=== PATIENT | male | born 1990 | race Caucasian/White ===

== ENCOUNTER 2017-01-07 22:48 | Emergency (ER) | payer BC, MEDICAID ==
[2017-01-07 22:59] VITALS: BP 145/90
--- NOTE | 2017-01-07 23:10 | ERNOTE ---
Medical Problem HPI - Narrative Date of Service: 01/07/17 - General Chief Complaint: Cough Time Seen by Provider: 01/07/17 23:10 Source: patient Exam Limitations: no limitations - Immun/Allergies/Home Medications Immunizations: IMMUNIZATION HX Immunizations Up to Date Yes History of Influenza Vaccine No Hx Pneumococcal Vaccination No Allergies/Adverse Reactions: Allergies No Known Allergies Allergy (Verified 07/09/16 16:22) Home Medications: HOME MEDICATIONS Guaifenesin/Pseudoephedrne HCl [Mucinex D ER 1,200-120 mg Tab] 1 tab PO Q12H PRN #24 tab 01/08/17 [Last Taken Unknown] - History of Present History Narrative: Presents to ER with c/o episode of cough productive of "blood tinged sputum", and congestion, onset today. Date (Duration): 01/07/17 Timing: intermittent Severity: moderate Review of Systems - Review of Systems Constitutional: Present: no symptoms reported. Absent: fever, chills, diaphoresis, weakness, fatigue, malaise, weight loss EYE: Present: no symptoms reported ENT: Present: See HPI, nose congestion, nasal drainage Respiratory: Present: cough Cardiology: Present: no symptoms reported Gastrointestinal/Abdominal: Present: no symptoms reported Genitourinary: Present: no symptoms reported Musculoskeletal: Present: no symptoms reported Skin: Present: no symptoms reported Neurological: Present: no symptoms reported Endocrine: Present: no symptoms reported Hematologic/Lymphatic: Present: no symptoms reported Psych: Present: no symptoms reported All Other Systems: All systems neg except as marked - Patient's Past Medical History Patient History - Medical: Depression Patient History - Cardiac/Respiratory: No pertinent hx Patient History - Cancer: No Hx of Cancer Patient History - Surgical Procedures: No surgical history Patient History - Other: None - Family History mom Family History - Medical: History Unknown dad Family History - Medical: History Unknown - Social History Living Situations: significant other Abuse History: No History of abuse Psych History: Hx of Depression Smoking Status: Current every day smoker Have you smoked in the past 12 months: Yes Alcohol Use: occasionally Drug Use: none - Immunizations Immunizations Up to Date: Yes Hx Pneumococcal Vaccination: No History of Influenza Vaccine: No Physical Exam - Physical Exam General Appearance: Present: wd/wn, alert, no apparent distress Eye Exam: Normal inspection: bilateral, PERRL: bilateral, EOMI: bilateral Ears, Nose, Throat: Present: normal ENT inspection, hearing grossly normal, normal pharynx Neck: Present: normal inspection, nontender. Absent: lymphadenopathy (R), lymphadenopathy (L) Respiratory: Present: no respiratory distress, normal breath sounds, no accessory muscle use, chest nontender, lungs clear Cardiovascular/Chest: Present: regular rate, rhythm, no murmur Neurological Exam: Present: alert, oriented, normal mood/affect Skin Exam: Present: normal color, warm/dry. Absent: skin rash ED Progress - Vital Signs Patient's Vital Signs:: I have reviewed the patient's vital signs. Vital Signs: Vital Signs 01/07/17 22:52 Temperature 36.2 C L Pulse Rate 104 H Respiratory 16 Rate Blood Pressure 145/90 O2 Sat by Pulse 97 Oximetry - X-Ray X-Ray #1 X-Ray: chest Interpretation: Interp. by me - No acute finding - Progress/Reassessment Chief Complaint: General Assessment Departure - Departure Clinical Impression: Acute URI Disposition: Home self-care Condition: Good Instructions: Upper Respiratory Infection, Adult, [id number] Prescriptions: Guaifenesin/Pseudoephedrne HCl [Mucinex D ER 1,200-120 mg Tab] 1 tab PO Q12H PRN #24 tab PRN Reason: Congestion and cough
[2017-01-08] MEDS ORDERED: BENZONATATE 100 MG CAPSULE PO ONE ×2 (00:05→00:08)
== END 2017-01-08 00:15 | disposition home or self-care (01) ==
LOC: ER 22:48
DX: J06.9 Acute upper respiratory infection, unspecified (principal); F17.210 Nicotine dependence, cigarettes, uncomplicated

== ENCOUNTER 2017-11-06 12:54 | Day surgery (SDC) | payer BC ==
[~2017-11-06 12:54] MED LIST: RINGER'S SOLUTION,LACTATED 1,000 ML IV ONE
[2017-11-06] MEDS ORDERED: ceFAZolin SODIUM/DEXTROSE,ISO 2 GM/50 ML BAG IV ONE (19:00)
[2017-11-06] MEDS ORDERED: ceFAZolin SODIUM 1 GM VIAL IV ONE (19:25)
[2017-11-06] MEDS ORDERED: BUPIVACAINE HCL/EPINEPHRINE 50 ML VIAL IJ ONE (19:36)
[2017-11-06] MEDS ORDERED: RINGER'S SOLUTION,LACTATED 1,000 ML IV ONE (20:05)
[2017-11-06] MEDS ORDERED: RINGER'S SOLUTION,LACTATED 1,000 ML IV PRN (20:08)
[2017-11-06] MEDS ORDERED: MORPHINE SULFATE 2 MG/ML DISP.SYRIN IV PRN (20:08)
[2017-11-06] MEDS ORDERED: oxyCODONE HCL/ACETAMINOPHEN 1 TAB TABLET PO ONE ×2 (20:08→21:00)
[2017-11-06] MEDS ORDERED: PANTOPRAZOLE SODIUM 40 MG in NORMAL SALINE 100 ML IV ONE (20:08)
[2017-11-06] MEDS ORDERED: oxyCODONE HCL/ACETAMINOPHEN 1 TAB TABLET PO PRN (20:25)
[2017-11-06 23:07] VITALS: BP 118/79
--- NOTE | 2017-11-07 20:03 | OR ---
Operative Report - Dictated Report Narrative: OPERATIVE REPORT DATE OF OPERATION: 11/06/2017 PREOPERATIVE DIAGNOSIS: Pilonidal abscess POSTOPERATIVE DIAGNOSIS: Presumed pilonidal abscess OPERATION: Incision and drainage of presumed pilonidal abscess SURGEON: Zak Toussaint MD ANESTHESIA: Gen. connie So CRNA INDICATIONS FOR PROCEDURE: The patient is a 27-year-old male presented to the emergency room last night with painful swelling in the sacral area. He had incision and drainage with packing of an abscess and was referred to the office today. He has a large abscess which will require anesthesia for thorough incision and drainage FINDINGS: Large (6 x 8 cm) presumed pilonidal abscess NARRATIVE OF PROCEDURE: The patient was identified preoperatively and prior to the administration of anesthetic a multidisciplinary timeout was observed. The patient was placed supine, SCDs were applied, and 2 g of intravenous Ancef administered. [place] scope-assisted endotracheal intubation was performed and general anesthetic administered. The patient was then placed in the left lateral position with appropriate padding and monitoring. The previous dressing was removed. The sacral area was prepped with Betadine solution and isolated with 4 sterile towels. The remainder the patient was covered with a sterile disposable drape. The area was carefully inspected. There were no identifiable pilonidal pits in the gluteal cleft despite diligent search. The less than 1 cm incision over the most fluctuant portion of abscess just to the right of the midline in the superior gluteal cleft was probed with a hemostat. This revealed a large cavity extending caudally. An ellipse of skin was excised with a scalpel to allow digital exploration of the abscess cavity. Loculations were lysed. The cavity was then flushed with 1 L of saline until the return was clear. No additional extensions were identified. The cavity was compatible with a pilonidal abscess although no demonstrable connection with the skin could be found. The abscess did not track toward the rectum. The cavity was then packed with iodoform gauze and a dressing of folded 4 x 4's , Mepilex border, and Medipore tape was applied. The operative procedure was terminated at this point. The patient tolerated the anesthetic and procedure well without complication. There was no measurable blood loss. Cultures had previously been submitted from the emergency room. 0.25% Marcaine with epinephrine was used for local anesthetic infiltration. The patient was returned to the supine position without incident, extubated, and transferred to the recovery room awake and in stable condition. The patient remained stable throughout a period of postoperative observation. His discomfort was controlled with po Percocet. His dressing remained dry. He was able to tolerate po intake and was up without assistance. I shared the operative findings with him. He has phone numbers to call if needed for uncontrolled pain or disruption of the dressing. He is to contact the office on 11/07/2017 for follow-up appointment tomorrow. He was given Percocet 5/325 mg #4 to use one or 2 every 4-6 hours as needed for discomfort. Reviewed and electronically signed
== END 2017-11-06 12:55 | disposition home or self-care (01) ==
LOC: SUR 12:54
PROVIDERS: ATTEND Surgery
PROC: 0H98XZZ Drainage of Buttock Skin, External Approach (ICD-10-PCS; principal; 2017-11-06 17:15)
DX: L05.01 Pilonidal cyst with abscess (principal); F17.200 Nicotine dependence, unspecified, uncomplicated; Z68.42 Body mass index [BMI] 45.0-49.9, adult